=== PATIENT | female | born 1940 | race Caucasian/White ===

== ENCOUNTER 2024-08-07 17:28 | Emergency (ER) | payer SELFPAY ==
--- NOTE | 2024-08-07 17:36 | ED.GENMED ---
History of Present Illness
General
Chief Complaint: Rectal Bleeding
Source: ambulance crew
Exam Limitations: clinical condition
Time Seen by Provider: 08/07/24 17:31
History of Present Illness
History of Present Illness:
See MDM
Past History
Past History
ED Past Medical History: Arrthythmia (Atrial fib), COPD, HTN, Hypercholesterolemia, Hypothyroidism, Psychiatric (Depression) and Other (Sciatica, osteoarthritis, benign essential tremor)
ED Past Surgical History: Appendectomy (Questionable), Gynecological (Hysterectomy) and Other (Liver Cyst removed,)
Social History
Tobacco: Former smoker
Alcohol: Former
Drug: None
Personal:
Living: alone
Employment: Retired
Family History
Family History: Other (Noncontributory)
Phy Exam
Physical Exam
Physical Exam:
See MDM
Course
Orders/Labs/Results
Orders:
Orders
08/07/24 17:34
0.9% Sodium Chloride 1000 ml [Nss] 1,000 ml IV BOLUS
Pantoprazole 80 mg/100 ml Nss [Protonix] 80 mg in 100 ml IV NOW
Pantoprazole [Protonix IV] 80 mg IV NOW STA
08/07/24 17:35
Electrocardiogram (*1) Urgent
Reason for Study: Shortness of Breath
Abnormal Lab Results
08/07/24
17:39
POC Glucose 162 H mg/dl
(70-99)
08/07/24 17:35
08/07/24 17:35
Vital Signs
Initial and Last Documented VS:
Initial Vital Signs
Pulse Resp Pulse Ox
135 3 80
08/07/24 17:36 08/07/24 17:36 08/07/24 17:36
Last Documented Vital Signs
Pulse Resp Pulse Ox
0 0 0
08/07/24 17:43 08/07/24 17:43 08/07/24 17:43
MDM/Problems Addressed
Differential Diagnosis Includes:
HPI and MDM Narrative:
84-year-old female presenting for evaluation of altered mental status. Per EMS, a neighbor checked on her. It was 5 days since she was last seen. EMS noted that she was on the floor unresponsive covered in black blood. She was hypoxic and placed
on nonrebreather. EMS presented the patient's DNR paperwork. On arrival, patient has a GCS of 3. Patient is not responsive. She has blood noted to left face. Pupils are fixed and dilated. She is not responding to pain. She has extremely poor
respiratory effort. Within minutes, patient went into PEA and no pulses were palpated. Bedside ultrasound shows no cardiac activity. Time of called almost immediately on arrival at 1743
Physical exam
General: Unresponsive, poor respiratory drive. Covered in black blood to left face. Skin breakdown noted throughout.
HEENT: Not protecting airway
Neck: appears supple
CV: Skin is mottled
Resp: Extremely poor respiratory drive. Frothy breath sounds
Abd: Non-distended
Extremities: Bruising to left side of body. Multiple skin abrasions noted
Neuro: GCS 3
Psych: Flat affect
Skin: Skin breakdown and mottling throughout
Problems Addressed including Acute and Chronic Conditions affecting care:
1. Altered mental status
Acuity: acute
Prognosis: unstable
Details: Patient came in covered in blood. DNR paperwork supplied by EMS. Immediately on arrival, pulses were lost and bedside ultrasound showed no cardiac activity
Updates
As soon as patient arrived, patient becoming even less responsive. No blood pressure was able to be obtained. Due to the significant amount of mottling of her digits, pulse ox was not obtained despite nonrebreather. The monitor quickly went into
a wide QRS rhythm and
6:23 PM Case discussed with medical assistant dermatology Leena Rodriguez and pt cleared from ME standpoint
Differential Diagnosis (but not limited to): Anemia, upper GI bleed, intracranial hemorrhage, pulmonary embolism, ID
Testing considered: CT head, blood work
Drug therapy (if applicable): OTC meds, please see d/c instruction regarding Rx drugs
Amount and/or Complexity of Data Reviewed
Clinical info obtained from: EMS
External data reviewed: N/A
Labs I independently reviewed (but not limited to): N/A
Radiology: N/A
Pulse Ox: not hypoxic
EKG independently reviewed: N/A
Cannon Pinion Adjuster: PEA
Critical Care: N/A
Risk of Complication:
Social Determinants of health: Poor social support
Discussed with other providers: N/A
Escalation of Care includes Admit/Obs: Time of called at 1743
Occasional wrong word or 'sound a like' substitutions may have occurred due to the inherent limitations of voice recognition software. Read the chart carefully and recognize, using context, where substitutions have occurred.
*Critical Care Note
Total Time (30-74mins, 75-104mins- exclusive of procedures): Not Applicable
ED Attending Note
-
Portions of this chart may have been created with voice recognition software.� Occasional wrong word or��sound alike� substitutions may have occurred due to the inherent limitations of voice recognition software.
Discharge Plan
Departure
Patient Disposition:
Date of Disposition: 08/07/24
Time of Disposition: 18:30
Discharge Problem:
Cardiac arrest
Prescriptions:
No Action
amlodipine 5 MG tablet
5 mg PO BID
levothyroxine 50 MCG tablet
50 mcg PO DAILY
escitalopram oxalate 10 mg Tablet
10 mg PO DAILY
Dulera 200-5 mcg/actuation Hfa Aerosol Inhaler
2 puff INHALATION R BID
spironolactone 25 MG tablet
25 mg PO BID
levalbuterol tartrate 45 mcg/actuation Hfa Aerosol Inhaler
2 inh INHALATION R Q6HPRN PRN (Reason: sob)
metoprolol succinate 25 mg Tablet Extended Release 24 Hr
25 mg PO DAILY Qty: 90 5RF
Eliquis 5 MG tablet
5 mg PO BID Qty: 1 0RF
Rx Instructions:
Resume on Sat am 01/23/22
atorvastatin [Lipitor] 10 mg Tablet
10 mg PO HS
ipratropium-albuterol 0.5 mg-3 mg(2.5 mg base)/3 mL Solution For Nebulization
3 ml inhalation R QID Qty: 90 0RF
acetaminophen [Pain Relief ES (acetaminophen)] 500 mg Tablet
1,000 mg PO TID Qty: 20 0RF
lidocaine 4 % Adhesive Patch,Medicated
1 patch topical DAILY Qty: 10 0RF
lorazepam 0.5 mg Tablet
0.5 mg PO [id number] PRN (Reason: anxiety,severe back pain) Qty: 10 0RF
Referrals:
UNKNOWN - PT NOT,INTERVIEWE [Family Provider] -
Interventions
Interventions:
*Risk Screen - Suicide Last Done: 08/07/24 18:26
*General Assessment Last Done: 08/07/24 18:26
*Neglect/Abuse Screening Last Done: 08/07/24 18:26
*ED COVID-19 Vaccine History Last Done: 08/07/24 18:26
Discharge Date and Time
Print Language: ALBANIAN
[2024-08-07 17:40] LABS: Glucose - Point of Care 162 mg/dl (70-99)
== END 2024-08-07 17:43 | disposition expired ==
LOC: EMR 17:28
PROVIDERS: EMERGENCY PHYSICIAN Student in an Organized Health Care Education/Training Program
DX: I46.9 Cardiac arrest, cause unspecified (principal); Z87.891 Personal history of nicotine dependence
CPT/HCPCS: 99283; 82962